=== PATIENT | female | born 1995 | race Caucasian/White ===

== ENCOUNTER 2021-09-25 08:08 | Emergency (ER) | payer SELFPAY ==
[~2021-09-25] VITALS: Ht 162.6 cm; Wt 54.4 kg
--- NOTE | 2021-09-25 08:17 | NUR ---
called for triage not in the waiting room.
[2021-09-25 08:31] VITALS: BP 109/69
[2021-09-25] MEDS ORDERED: MUPI22OI2 TP (08:47)
[2021-09-25] MEDS ORDERED: SULF1TAB48 PO (08:47)
[2021-09-25] MEDS ORDERED: CLIN150C16 PO (08:47)
--- NOTE | 2021-09-25 09:14 | NUR ---
Patient discharged to home in stable condition. Written and verbal after care instructions given. Patient verbalizes understanding of instruction.
== END 2021-09-25 09:14 | disposition home or self-care (01) ==
LOC: ER 08:14
DX: A49.02 Methicillin resistant Staphylococcus aureus infection, unspecified site (principal)